=== PATIENT | female | born 1985 | race Caucasian/White ===

== ENCOUNTER 2016-10-09 22:50 | Emergency (ER) | payer MEDICAID ==
[2016-10-09 22:55] VITALS: BP 122/74; PULSE 89; RESP 16; TEMP 97.5; O2SAT 100
[2016-10-09] MEDS ORDERED: DEXAMETHASONE 4 MG TAB PO ONE (23:13)
[2016-10-09] MEDS ORDERED: diphenhydrAMINE 25 MG CAP PO ONE (23:13)
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
[2016-10-09] MEDS ORDERED: METHOCARBAMOL 750 MG TAB PO ONE (23:19)
== END 2016-10-09 23:35 | disposition home or self-care (01) ==
DX: S60.221A Contusion of right hand, initial encounter (principal); M62.830 Muscle spasm of back; V86.59XA Driver of other special all-terrain or other off-road motor vehicle injured in nontraffic accident, initial encounter; Y99.8 Other external cause status; Y93.55 Activity, bike riding

== ENCOUNTER 2016-11-24 11:47 | Emergency (ER) | payer MEDICAID ==
[2016-11-24 11:54] VITALS: TEMP 98.2
[2016-11-24 12:27] VITALS: RESP 16
[2016-11-24] MEDS ORDERED: HYDROmorphONE/DILAUDID 1 MG/ML SYR IVP ONE (12:53)
[2016-11-24] MEDS ORDERED: ONDANSETRON 4 MG/2 ML VIAL IVP ONE (12:54)
--- NOTE | 2016-11-24 12:59 | EDPHY ---
H & P Stated Complaint: l sided abd/n/v/d tachycardic Time Seen by Provider: 11/24/16 12:55 HPI/ROS: HPI: 30-year-old female presents to ED with chief concern 8/10 left lower quadrant abdominal pain, mild left low flank pain. Symptoms onset suddenly last night. Associated with nausea, vomiting, last night, and 3 episodes of watery diarrhea this morning. Denies fever, chills, myalgias, shortness of breath, chest pain. Has a history of multiple kidney stones. Past her last kidney stone 3 weeks ago. Kidney stones have typically been on the right side. Has had a nephrostomy tube in the past due to obstructive nephrolithiasis. ROS:10 point review of systems is negative other than as stated in HPI Source: Patient Exam Limitations: No limitations - Personal History LMP (Females 10-55): 15-21 Days Ago Current Tetanus/Diphtheria Vaccine: Yes Tetanus Vaccine Date: < 10 years - Medical/Surgical History Hx Asthma: No Hx Chronic Respiratory Disease: No Hx Diabetes: No Hx Cardiac Disease: Yes Hx Renal Disease: No Hx Cirrhosis: No Hx Alcoholism: No Hx HIV/AIDS: No Hx Splenectomy or Spleen Trauma: No Other PMH: PMH: seizures, bipolar, a-fib, endometriosis. PSH: joselito, knee surgery, , dvt post -op. mrsa 2008, appendectomy - Family History Significant Family History: No pertinent family hx - Social History Smoking Status: Never smoked Additional Social History: Seizure, bipolar, AFib, endometriosis, cholecystectomy, knee surgery, , DVT, appendectomy - Physical Exam Exam: Vital signs stable, reviewed by me General: Awake, alert, calm, cooperative. No acute distress. Head: Normalocephalic. Atraumatic. EENT: PERRLA. EOMI. No pallor or injection. Anicteric. No nystagmus. No injection. Neck: Supple, nontender. No lymphadenopathy. Full range of motion. No meningismus. Respiratory: Breathing unlabored. Breath sounds equal bilaterally and clear to auscultation. No adventitious sounds. CV: Chest nontender, atraumatic. Heart rate regular. No murmur, distal pulses 2+ bilaterally. Brisk cap refill all extremities. GI: Abdomen soft, obese left lower quadrant tenderness to deep palpation. No rebound. No guarding. Bowel sounds normoactive and positive x4 quadrants. : No suprapubic tenderness. Positive left flank tenderness Neuro: Alert. Oriented x 3. Speech clear. Nonfocal cranial nerves throughout. Sensation intact all extremities. Skin: Skin warm, dry, intact. Skin turgor normal. Extremities: Full range of motion in all 4 extremities. Strength 5+ all extremities. Constitutional: Initial Vital Signs Temperature (C) 36.8 C 11/24/16 11:51 Heart Rate 139 H 11/24/16 11:51 Respiratory Rate 20 11/24/16 11:51 Blood Pressure 115/83 H 11/24/16 11:51 O2 Sat (%) 94 11/24/16 11:51 O2 Delivery Mode Room Air Allergies/Adverse Reactions: amoxicillin Allergy (Verified 11/24/16 11:49) cephalexin monohydrate [From Keflex] Allergy (Verified 11/24/16 11:49) ciprofloxacin [From Cipro] Allergy (Verified 11/24/16 11:49) ciprofloxacin HCl [From Cipro] Allergy (Verified 11/24/16 11:49) clindamycin Allergy (Verified 11/24/16 11:49) diazepam [From Valium] Allergy (Verified 11/24/16 11:49) Gadolinium-Containing Contrast Medi Allergy (Verified 11/24/16 11:49) Iodinated Contrast Media - Oral and Allergy (Verified 11/24/16 11:49) ketorolac tromethamine [From Toradol] Allergy (Verified 11/24/16 11:49) levofloxacin [From Levaquin] Allergy (Verified 11/24/16 11:49) morphine Allergy (Verified 11/24/16 11:49) nitrofurantoin [From Macrobid] Allergy (Verified 11/24/16 11:49) nitrofurantoin macrocrystalline [From Macrobid] Allergy (Verified 11/24/16 11:49 ) Penicillins Allergy (Verified 11/24/16 11:49) sulfamethoxazole [From Bactrim] Allergy (Verified 11/24/16 11:49) trimethoprim [From Bactrim] Allergy (Verified 11/24/16 11:49) vancomycin Allergy (Verified 11/24/16 11:49) Home Medications: Medication Instructions Recorded Seroquel 12/22/15 GABAPENTIN 10/23/16 Hydrocodone/APAP 5/325 [[place] 1 - 2 tab PO Q6H PRN #8 tab 11/24/16 5325 (*)] Medical Decision Making - Diagnostics Imaging Results: Imaging Impressions Abdomen/Pelvis Ultrasound 11/24/16 13:43 Impression: Normal exam. Note: This does not exclude the diagnosis of pyelonephritis. If there is further clinical concern regarding the patient's symptoms, CT imaging could be considered. Findings were discussed with Kizzy Peraza NP at 14:26, on 11/24/2016. Imaging: Discussed imaging studies w/ call specialist Radiologist ED Course/Re-evaluation: 30-year-old female presents to emergency department with left lower quadrant discomfort that onset suddenly last night. She is afebrile. Vitals are stable. She has a history of appendectomy, cholecystectomy. Labs are pending. She is given 0.5 mg Dilaudid, and 4 mg IV Zofran. 1347: White count 3940. BUN and creatinine 7/0.6. Urinalysis shows 2+ blood, no esterase, no nitrates, no white blood cells. No evidence of infection. Patient refuses a abdominal pelvis CT to rule out kidney stone. Ultrasound has been ordered. 1445: Ultrasound without evidence of stone or obstruction. Patient's pain significantly reduced after IV Dilaudid and Zofran. Will have her follow up with primary care for recheck tomorrow without fail. She has been counseled and agrees to do so. Differential Diagnosis: Differential diagnosis includes but is not limited to gastroenteritis, UTI, kidney stone, pyelo - Data Points Laboratory Results: Laboratory Results 11/24/16 13:00 11/24/16 13:00 11/24/16 11/24/16 11/24/16 13:00 13:00 12:39 WBC 3.94 10^3/uL 10^3/uL (3.80-9.50) RBC 5.21 10^6/uL 10^6/uL (4.18-5.33) Hgb 11.6 g/dL L g/dL (12.6-16.3) Hct 38.4 % % (38.0-47.0) MCV 73.7 fL L fL (81.5-99.8) MCH 22.3 pg L pg (27.9-34.1) MCHC 30.2 g/dL L g/dL (32.4-36.7) RDW 19.0 % H % (11.5-15.2) Plt Count 260 10^3/uL 10^3/uL (150-400) MPV 10.3 fL fL (8.7-11.7) Neut % (Auto) 69.5 % % (39.3-74.2) Lymph % (Auto) 23.6 % % (15.0-45.0) [place] % (Auto) 5.8 % % (4.5-13.0) Eos % (Auto) 0.3 % L % (0.6-7.6) Baso % (Auto) 0.5 % % (0.3-1.7) Nucleat RBC Rel Count 0.0 % % (0.0-0.2) Absolute Neuts (auto) 2.74 10^3/uL 10^3/uL (1.70-6.50) Absolute Lymphs (auto) 0.93 10^3/uL L 10^3/uL (1.00-3.00) Absolute Monos (auto) 0.23 10^3/uL L 10^3/uL (0.30-0.80) Absolute Eos (auto) 0.01 10^3/uL L 10^3/uL (0.03-0.40) Absolute Basos (auto) 0.02 10^3/uL 10^3/uL (0.02-0.10) Absolute Nucleated RBC 0.00 10^3/uL 10^3/uL (0-0.01) Immature Gran % 0.3 % % (0.0-1.1) Immature Gran # 0.01 10^3/uL 10^3/uL (0.00-0.10) Sodium 143 mEq/L mEq/L (134-144) Potassium 4.4 mEq/L mEq/L (3.5-5.2) Chloride 108 mEq/L mEq/L (97-110) Carbon Dioxide 22 mEq/l mEq/l (22-31) Anion Gap 13 mEq/L mEq/L (8-16) BUN 7 mg/dL mg/dL (7-23) Creatinine 0.6 mg/dL mg/dL (0.6-1.0) Estimated GFR > 60 Glucose 121 mg/dL H mg/dL (70-100) Calcium 10.5 mg/dL H mg/dL (8.5-10.4) Urine Color Urine Appearance Urine pH Ur Specific [place] Urine Protein Urine Ketones Urine Blood Urine Nitrate Urine Bilirubin Urine Urobilinogen Ur Leukocyte Esterase Urine RBC Urine WBC Ur Epithelial Cells Urine Bacteria Urine Mucus Urine Glucose Urine Test NEGATIVE 11/24/16 12:05 WBC RBC Hgb Hct MCV MCH MCHC RDW Plt Count MPV Neut % (Auto) Lymph % (Auto) [place] % (Auto) Eos % (Auto) Baso % (Auto) Nucleat RBC Rel Count Absolute Neuts (auto) Absolute Lymphs (auto) Absolute Monos (auto) Absolute Eos (auto) Absolute Basos (auto) Absolute Nucleated RBC Immature Gran % Immature Gran # Sodium Potassium Chloride Carbon Dioxide Anion Gap BUN Creatinine Estimated GFR Glucose Calcium Urine Color YELLOW Urine Appearance HAZY Urine pH 7.0 (5.0-7.5) Ur Specific [place] 1.002 (1.002-1.030) Urine Protein NEGATIVE (NEGATIVE) Urine Ketones NEGATIVE (NEGATIVE) Urine Blood 2+ H (NEGATIVE) Urine Nitrate NEGATIVE (NEGATIVE) Urine Bilirubin NEGATIVE (NEGATIVE) Urine Urobilinogen NEGATIVE EU EU (0.2-1.0) Ur Leukocyte Esterase NEGATIVE (NEGATIVE) Urine RBC 5-10 /hpf H /hpf (0-3) Urine WBC NONE SEEN /hpf /hpf (0-3) Ur Epithelial Cells 2+ /lpf H /lpf (NONE-1+) Urine Bacteria 1+ /hpf H /hpf (NONE SEEN) Urine Mucus TRACE /lpf /lpf (NONE-1+) Urine Glucose NEGATIVE (NEGATIVE) Urine Test Medications Given: Discontinued Medications Hydromorphone HCl (Dilaudid) 0.5 mg IVP EDNOW ONE Stop: 11/24/16 12:54 Last Admin: 11/24/16 13:45 Dose: 0.5 mg Ondansetron HCl (Zofran) 4 mg IVP EDNOW ONE Stop: 11/24/16 12:55 Last Admin: 11/24/16 13:45 Dose: 4 mg Departure - Departure Disposition: Home, Routine, Self-Care Clinical Impression: Abdominal pain Condition: Good Instructions: Abdominal Pain (ED) Additional Instructions: Plan: Follow up with primary care for recheck tomorrow without fail--When you call to schedule appointment, please let the office know you are an "ER follow up" appointment" Drink plenty of fluids 1-2 [place] every 6 hours as needed for severe pain--Never drink or drive while taking this medication. This medication impairs decision making capacity so do not work or sign important documents while taking. This medication its constipating so drink plenty of fluids and consider an [id number] stool softener such as docusate sodium (Colace) while taking this medication. This medication has addictive properties. You should use the least amount for the shortest amount of time. [facility] ED and Urgent Care do not refill narcotic pain medication prescriptions. This is a hospital policy. You will need to follow up as indicated for recheck for further narcotic refills. Referrals: NONE *PRIMARY CARE P,. [Primary Care Provider] - As per Instructions Merlin Espinal MD [Medical Doctor] - As per Instructions Prescriptions: Hydrocodone/APAP 5/325 [[place] 5/325 (*)] 1 - 2 tab PO Q6H PRN #8 tab PRN Reason: severe pain
[2016-11-24 13:04] LABS: COLOR YELLOW; LEUKOCYTE ESTERASE,URINE NEGATIVE (NEGATIVE); NITRITE,URINE NEGATIVE (NEGATIVE)
[2016-11-24 13:12] LABS: BACTERIA 1+ /hpf (NONE SEEN); MUCUS TRACE /lpf (NONE-1+)
[2016-11-24 13:14] LABS: WBC,URINE NONE SEEN /hpf (0-3)
[2016-11-24 13:18] LABS: % IMMATURE GRANULYOCYTES 0.3 % (0.0-1.1); ABSOLUTE IMMATURE GRANULOCYTES 0.01 10^3/uL (0.00-0.10); ADD DIFF? NO; ADD MORPH? NO; ADD SCAN? NO; ATYPICAL LYMPHOCYTE FLAG 0 (0-99); FRAGMENT RBC FLAG 20 (0-99); HEMATOCRIT 38.4 % (38.0-47.0); HEMOGLOBIN 11.6 g/dL (12.6-16.3); LEFT SHIFT FLG 0 (0-99); LIPEMIA HEMOLYSIS FLAG 80 (0-99); MEAN CELL HEMOGLOBIN 22.3 pg (27.9-34.1); MEAN CELL HEMOGLOBIN CONCENTR. 30.2 g/dL (32.4-36.7); MEAN CELL VOLUME 73.7 fL (81.5-99.8); MEAN PLATELET VOLUME 10.3 fL (8.7-11.7); PLATELET CLUMPS FLAG 10 (0-99); PLATELET COUNT 260 10^3/uL (150-400); RED BLOOD CELL COUNT 5.21 10^6/uL (4.18-5.33)
[2016-11-24 13:25] LABS: CALCIUM 10.5 mg/dL (8.5-10.4); CARBON DIOXIDE 22 mEq/l (22-31); CHLORIDE 108 mEq/L (97-110); CREATININE 0.6 mg/dL (0.6-1.0); GLOMERULAR FILTRATION RATE > 60; GLUCOSE 121 mg/dL (70-100); SODIUM 143 mEq/L (134-144)
[2016-11-24 13:34] LABS: ANION GAP 13 mEq/L (8-16); POTASSIUM 4.4 mEq/L (3.5-5.2)
[2016-11-24 15:03] VITALS: BP 127/76; PULSE 84; O2SAT 95
== END 2016-11-24 15:03 | disposition home or self-care (01) ==
DX: R10.32 Left lower quadrant pain (principal); Z90.49 Acquired absence of other specified parts of digestive tract
CPT/HCPCS: 96374; J1170; J2405

== ENCOUNTER 2016-11-29 23:51 | Emergency (ER) | payer MEDICAID ==
[2016-11-29 23:56] VITALS: RESP 16; TEMP 98.2
[2016-11-30 00:28] LABS: COLOR PALE YELLOW; LEUKOCYTE ESTERASE,URINE TRACE (NEGATIVE); NITRITE,URINE NEGATIVE (NEGATIVE)
[2016-11-30] MEDS ORDERED: ONDANSETRON 4 MG/2 ML VIAL IVP ONE (00:34)
[2016-11-30] MEDS ORDERED: NS 1,000 ML IV ONE (00:34)
[2016-11-30 00:38] LABS: BACTERIA 2+ /hpf (NONE SEEN); MUCUS TRACE /lpf (NONE-1+); RBC,URINE 25-50 /hpf (0-3)
--- NOTE | 2016-11-30 00:40 | EDPHY ---
H & P Stated Complaint: flank pain, hematuria Time Seen by Provider: 11/30/16 00:20 HPI/ROS: Chief Complaint: Back pain, blood in urine HPI: 31-year-old female with a history of urinary tract infections and kidney stones presenting with bilateral back pain right greater than left for the last 2 days. Patient states she has also been having some blood in her urine. No fevers or chills. No urgency frequency or dysuria. Has had some nausea vomiting is unable to keep her usual pain medicines down. No abdominal pain. Last menstrual. Was 2 weeks ago was normal. She has had a tubal ligation. Patient states that feels like her prior kidney pain in the past. She does have a history of chronic back pain for which she takes tramadol but states that this does not feel similar to that. ROS: 10 point Review of Systems is negative except as noted in the HPI. PMH: Seizure disorder, bipolar disorder, gastroparesis Surgical history: Tubal ligation, appendectomy, cholecystectomy Medications: Seroquel, gabapentin, tramadol Allergies: Reglan, Toradol, morphine, multiple antibiotics Social History: No smoking, no alcohol, no recreational drug use Family History: non-contributory Physical Exam: Gen: Awake, Alert, No Distress HEENT: Nose: no rhinorrhea Eyes: PERRLA, EOMI Mouth: Moist mucosa Neck: Supple, no JVD Chest: nontender, lungs clear to auscultation Heart: S1, S2 normal, no murmur Abd: Soft, non-tender, no guarding Back: She has soft tissue tenderness in the bilateral paraspinal regions right greater than left reproducing presenting complaint, no CVA tenderness, no midline tenderness Ext: no edema, non-tender Skin: no rash Neuro: CN II-XII intact, Sensation grossly intact, Strength 5/5 in bilateral upper and lower extremities - Personal History LMP (Females 10-55): 8-14 Days Ago Current Tetanus/Diphtheria Vaccine: Yes Tetanus Vaccine Date: < 10 years - Medical/Surgical History Hx Asthma: No Hx Chronic Respiratory Disease: No Hx Diabetes: No Hx Cardiac Disease: Yes Hx Renal Disease: No Hx Cirrhosis: No Hx Alcoholism: No Hx HIV/AIDS: No Hx Splenectomy or Spleen Trauma: No Other PMH: PMH: seizures, bipolar, a-fib, endometriosis, pyelo, kidney stones. PSH: joselito, knee surgery, , dvt post -op. mrsa 2007, appendectomy, nephrostomy - Social History Smoking Status: Never smoked Constitutional: Initial Vital Signs Temperature (C) 36.8 C 11/29/16 23:53 Heart Rate 89 11/29/16 23:53 Respiratory Rate 16 11/29/16 23:53 Blood Pressure 110/73 11/29/16 23:53 O2 Sat (%) 99 11/29/16 23:53 O2 Delivery Mode Room Air Allergies/Adverse Reactions: amoxicillin Allergy (Verified 11/24/16 11:49) cephalexin monohydrate [From Keflex] Allergy (Verified 11/24/16 11:49) ciprofloxacin [From Cipro] Allergy (Verified 11/24/16 11:49) ciprofloxacin HCl [From Cipro] Allergy (Verified 11/24/16 11:49) clindamycin Allergy (Verified 11/24/16 11:49) diazepam [From Valium] Allergy (Verified 11/24/16 11:49) Gadolinium-Containing Contrast Medi Allergy (Verified 11/24/16 11:49) Iodinated Contrast Media - Oral and Allergy (Verified 11/24/16 11:49) ketorolac tromethamine [From Toradol] Allergy (Verified 11/24/16 11:49) levofloxacin [From Levaquin] Allergy (Verified 11/24/16 11:49) morphine Allergy (Verified 11/24/16 11:49) nitrofurantoin [From Macrobid] Allergy (Verified 11/24/16 11:49) nitrofurantoin macrocrystalline [From Macrobid] Allergy (Verified 11/24/16 11:49 ) Penicillins Allergy (Verified 11/24/16 11:49) sulfamethoxazole [From Bactrim] Allergy (Verified 11/24/16 11:49) trimethoprim [From Bactrim] Allergy (Verified 11/24/16 11:49) vancomycin Allergy (Verified 11/24/16 11:49) Home Medications: Medication Instructions Recorded Seroquel 12/22/15 GABAPENTIN 05/01/16 Hydrocodone/APAP 5/325 [Martin 1 - 2 tab PO Q6H PRN #8 tab 11/24/16 5/325 (*)] Medical Decision Making ED Course/Re-evaluation: 31-year-old woman with bilateral back pain concerned she might have a kidney infection. She has nausea vomiting unable to tolerate her medications. It is noted that she has a narcotic watch and high risk for narcotic use. Will give her IV fluids and antiemetics and check her urinalysis now as well as blood work and reassess. Will hold off on IV narcotics at this time. Urinalysis is positive for blood but no signs of infection. CBC shows no leukocytosis. I have discussed results with the patient. She does not want a CT scan at this time. She had an ultrasound 6 days ago which did not show any urinary obstruction or hydronephrosis at that time. Will give her IV lidocaine 2 milligrams/kilogram IV over 10 minutes and reassess. Patient is mildly improved after lidocaine infusion. She is tolerating p.o. right now. I have encouraged her to resume her usual oral medications. She has not had any further nausea or vomiting. I think this is likely musculoskeletal in nature but also could have some renal colic component as well. No evidence of infection at this time. Will discharge with follow up with primary care physician with her usual pain management regimen. - Data Points Laboratory Results: Laboratory Results 11/30/16 00:25 11/30/16 00:25 11/30/16 11/30/16 11/30/16 00:25 00:25 00:05 WBC 6.73 10^3/uL 10^3/uL (3.80-9.50) RBC 4.46 10^6/uL 10^6/uL (4.18-5.33) Hgb 10.1 g/dL L g/dL (12.6-16.3) Hct 33.4 % L % (38.0-47.0) MCV 74.9 fL L fL (81.5-99.8) MCH 22.6 pg L pg (27.9-34.1) MCHC 30.2 g/dL L g/dL (32.4-36.7) RDW 19.0 % H % (11.5-15.2) Plt Count 275 10^3/uL 10^3/uL (150-400) MPV 10.0 fL fL (8.7-11.7) Neut % (Auto) 49.4 % % (39.3-74.2) Lymph % (Auto) 40.4 % % (15.0-45.0) Roberts % (Auto) 8.3 % % (4.5-13.0) Eos % (Auto) 1.2 % % (0.6-7.6) Baso % (Auto) 0.4 % % (0.3-1.7) Nucleat RBC Rel Count 0.0 % % (0.0-0.2) Absolute Neuts (auto) 3.32 10^3/uL 10^3/uL (1.70-6.50) Absolute Lymphs (auto) 2.72 10^3/uL 10^3/uL (1.00-3.00) Absolute Monos (auto) 0.56 10^3/uL 10^3/uL (0.30-0.80) Absolute Eos (auto) 0.08 10^3/uL 10^3/uL (0.03-0.40) Absolute Basos (auto) 0.03 10^3/uL 10^3/uL (0.02-0.10) Absolute Nucleated RBC 0.00 10^3/uL 10^3/uL (0-0.01) Immature Gran % 0.3 % % (0.0-1.1) Immature Gran # 0.02 10^3/uL 10^3/uL (0.00-0.10) Sodium 143 mEq/L mEq/L (134-144) Potassium 3.7 mEq/L mEq/L (3.5-5.2) Chloride 107 mEq/L mEq/L (97-110) Carbon Dioxide 23 mEq/l mEq/l (22-31) Anion Gap 13 mEq/L mEq/L (8-16) BUN 7 mg/dL mg/dL (7-23) Creatinine 0.6 mg/dL mg/dL (0.6-1.0) Estimated GFR > 60 Glucose 108 mg/dL H mg/dL (70-100) Calcium 9.5 mg/dL mg/dL (8.5-10.4) Urine Color PALE YELLOW Urine Appearance HAZY Urine pH 6.0 (5.0-7.5) Ur Specific [place] 1.004 (1.002-1.030) Urine Protein NEGATIVE (NEGATIVE) Urine Ketones NEGATIVE (NEGATIVE) Urine Blood 3+ H (NEGATIVE) Urine Nitrate NEGATIVE (NEGATIVE) Urine Bilirubin NEGATIVE (NEGATIVE) Urine Urobilinogen NEGATIVE EU EU (0.2-1.0) Ur Leukocyte Esterase TRACE H (NEGATIVE) Urine RBC 25-50 /hpf H /hpf (0-3) Urine WBC 3-5 /hpf H /hpf (0-3) Ur Epithelial Cells 1+ /lpf /lpf (NONE-1+) Urine Bacteria 2+ /hpf H /hpf (NONE SEEN) Urine Mucus TRACE /lpf /lpf (NONE-1+) Urine Glucose NEGATIVE (NEGATIVE) Medications Given: Discontinued Medications Sodium Chloride (Ns) 1,000 mls @ 0 mls/hr IV ONCE ONE PRN Reason: Wide Open Stop: 11/30/16 00:35 Last Admin: 11/30/16 00:40 Dose: 1,000 mls Lidocaine HCl 150 mg/ Sodium (Chloride) 115 mls @ 600 mls/hr IV EDNOW ONE Stop: 11/30/16 01:18 Last Admin: 11/30/16 01:35 Dose: 115 mls Ondansetron HCl (Zofran) 4 mg IVP EDNOW ONE Stop: 11/30/16 00:35 Last Admin: 11/30/16 00:40 Dose: 4 mg Departure - Departure Disposition: Home, Routine, Self-Care Clinical Impression: Renal colic Condition: Good Instructions: Renal Colic (ED) Additional Instructions: Follow up with your primary care physician in 3-4 days for re-evaluation. Return to the emergency department for increasing pain, fevers, chills, nausea, vomiting, or any other concerns. Take your usual medications for chronic pain. Referrals: NONE *PRIMARY CARE P,. [Primary Care Provider] - As per Instructions Merlin Espinal MD [Medical Doctor] - As per Instructions
[2016-11-30 00:47] LABS: % IMMATURE GRANULYOCYTES 0.3 % (0.0-1.1); ABSOLUTE IMMATURE GRANULOCYTES 0.02 10^3/uL (0.00-0.10); ADD DIFF? NO; ADD MORPH? NO; ADD SCAN? NO; ATYPICAL LYMPHOCYTE FLAG 10 (0-99); FRAGMENT RBC FLAG 20 (0-99); HEMATOCRIT 33.4 % (38.0-47.0); HEMOGLOBIN 10.1 g/dL (12.6-16.3); LEFT SHIFT FLG 0 (0-99); LIPEMIA HEMOLYSIS FLAG 80 (0-99); MEAN CELL HEMOGLOBIN 22.6 pg (27.9-34.1); MEAN CELL HEMOGLOBIN CONCENTR. 30.2 g/dL (32.4-36.7); MEAN CELL VOLUME 74.9 fL (81.5-99.8); PLATELET CLUMPS FLAG 0 (0-99); PLATELET COUNT 275 10^3/uL (150-400); RED BLOOD CELL COUNT 4.46 10^6/uL (4.18-5.33)
[2016-11-30 00:58] LABS: ANION GAP 13 mEq/L (8-16); CALCIUM 9.5 mg/dL (8.5-10.4); CARBON DIOXIDE 23 mEq/l (22-31); CHLORIDE 107 mEq/L (97-110); CREATININE 0.6 mg/dL (0.6-1.0); GLOMERULAR FILTRATION RATE > 60; GLUCOSE 108 mg/dL (70-100); POTASSIUM 3.7 mEq/L (3.5-5.2); SODIUM 143 mEq/L (134-144)
[2016-11-30] MEDS ORDERED: LIDOCAINE 1% 150 MG in NS 100 ML IV ONE (01:07)
[2016-11-30 02:05] VITALS: BP 103/72; PULSE 85; O2SAT 96
== END 2016-11-30 02:00 | disposition home or self-care (01) ==
DX: N23 Unspecified renal colic (principal)
CPT/HCPCS: 96374; J2405